=== PATIENT | male | born 1985 | race American Indian/Alaskan Native ===

== ENCOUNTER 2017-12-12 09:30 | Emergency (ER) | payer SELFPAY ==
[2017-12-12 10:05] VITALS: BP 138/84
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
[2017-12-12] MEDS ORDERED: TORADOL IM ONE (10:57)
[2017-12-12] MEDS ORDERED: FLEXERIL PO ONE (10:57)
== END 2017-12-12 11:24 | disposition home or self-care (01) ==
LOC: ED 09:30
DX: M79.651 Pain in right thigh (principal)
CPT/HCPCS: 96372; 99282; J1885

== ENCOUNTER 2017-12-12 17:41 | Emergency (ER) | payer SELFPAY ==
[2017-12-12] MEDS ORDERED: NACL 0.9% 1000 ML 1,000 ML IV ONE (18:28)
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
[2017-12-12 18:56] LABS: Basophils % (Auto) 0.3 % (0.0-1.8); Eosinophils # (Auto) 0.1 K/mm3 (0.0-0.4); Eosinophils % (Auto) 0.7 % (0.0-4.3); Hematocrit 43.9 % (35.5-45.6); Hemoglobin 14.6 gm/dl (11.8-15.2); Lymphocytes # (Auto) 1.4 K/mm3 (1.2-5.4); Lymphocytes % (Auto) 15.3 % (13.4-35.0); Mean Corpuscular HGB Conc 33 % (32-34); Mean Corpuscular Hemoglobin 32 pg (28-32); Mean Corpuscular Volume 97 fl (84-94); Monocytes # (Auto) 0.5 K/mm3 (0.0-0.8); Monocytes % (Auto) 5.8 % (0.0-7.3); Platelet Count 177 K/mm3 (140-440); Red Blood Count 4.52 M/mm3 (3.65-5.03); Red Cell Distribution Width 14.3 % (13.2-15.2)
[2017-12-12 18:58] LABS: Alanine Aminotransferase 20 units/L (7-56); Albumin 4.8 g/dL (3.9-5); BUN/Creatinine Ratio 14; Blood Urea Nitrogen 15 mg/dL (9-20); Hemolysis Index 10
--- NOTE | 2017-12-12 19:56 | Cat Scan Report ---
FINAL REPORT EXAM: CT HEAD/BRAIN WO CON HISTORY: ams TECHNIQUE: CT head without contrast PRIORS: None. FINDINGS: No acute intra-axial or extra-axial hemorrhage is identified. There is no evidence of midline shift or mass effect. The ventricles and sulci are within normal limits. Valerio-white matter differentiation is intact. No acute parenchymal abnormalities seen. Bony calvarium is grossly intact. Visualized portions of the mastoids and paranasal sinuses are unremarkable. IMPRESSION: Negative CT head
[2017-12-12 19:57] LABS: Amphetamine Screen,Urine PRESUMPTIVE NEGATIVE; Benzodiazepines Screen,Urine PRESUMPTIVE NEGATIVE; Cocaine Screen,Urine PRESUMPTIVE NEGATIVE; Methadone Screen,Urine PRESUMPTIVE NEGATIVE; Opiate Screen,Urine PRESUMPTIVE NEGATIVE
[2017-12-12 19:59] LABS: Bacteria,Urine 2+ /HPF (Negative); Bilirubin,Urine NEG (Negative); Blood,Urine LG (Negative); Color,Urine Red (Yellow); Mucus,Urine 2+ /HPF; Urobilinogen,Urine < 2.0 mg/dL (<2.0)
[2017-12-12 20:02] LABS: RBC,Urine > 182.0 /HPF (0.0-6.0)
[2017-12-12 20:10] LABS: Cannabinoid Screen,Urine PRESUMPTIVE POSITIVE
[2017-12-12 20:39] VITALS: BP 125/65
[2017-12-12] MEDS ORDERED: MOTRIN PO ONE (20:46)
[2017-12-12] MEDS ORDERED: MOTRIN ONE (20:48)
== END 2017-12-12 21:00 | disposition home or self-care (01) ==
LOC: ED 17:41
DX: R56.9 Unspecified convulsions (principal); M79.606 Pain in leg, unspecified; T39.1X5A Adverse effect of 4-Aminophenol derivatives, initial encounter; T39.315A Adverse effect of propionic acid derivatives, initial encounter; F17.200 Nicotine dependence, unspecified, uncomplicated; F12.10 Cannabis abuse, uncomplicated; Y92.89 Other specified places as the place of occurrence of the external cause
CPT/HCPCS: 36415; 70450; 80053; 80307; 81001; 82962; 85025; 93005; 93010; 96360; 99285; G0480; J7030; 80320

== ENCOUNTER 2018-02-16 18:02 | Emergency (ER) | payer SELFPAY ==
[2018-02-16 19:13] LABS: Hemoglobin 15.4 gm/dl (11.8-15.2); Mean Corpuscular HGB Conc 33 % (32-34); Mean Corpuscular Hemoglobin 32 pg (28-32); Mean Corpuscular Volume 97 fl (84-94); Platelet Count 178 K/mm3 (140-440); Red Blood Count 4.83 M/mm3 (3.65-5.03); Red Cell Distribution Width 13.8 % (13.2-15.2)
[2018-02-16] MEDS ORDERED: FIORICET PO ONE (19:13)
[2018-02-16] MEDS ORDERED: KEPPRA 1,000 MG/NS 0.75% 100ML 1,000 MG/100 ML BAG IV ONE (19:13)
[2018-02-16 19:15] LABS: BUN/Creatinine Ratio 11; Blood Urea Nitrogen 13 mg/dL (9-20); Calcium 9.4 mg/dL (8.4-10.2); Hemolysis Index 17
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
[2018-02-16 20:14] LABS: Amphetamine Screen,Urine PRESUMPTIVE NEGATIVE; Benzodiazepines Screen,Urine PRESUMPTIVE NEGATIVE; Cocaine Screen,Urine PRESUMPTIVE NEGATIVE; Methadone Screen,Urine PRESUMPTIVE NEGATIVE; Opiate Screen,Urine PRESUMPTIVE NEGATIVE
[2018-02-16 20:26] LABS: Cannabinoid Screen,Urine PRESUMPTIVE POSITIVE
--- NOTE | 2018-02-16 22:13 | Cat Scan Report ---
FINAL REPORT PROCEDURE: CT HEAD/BRAIN WO CON TECHNIQUE: Computerized tomography of the head was performed without contrast material. HISTORY: seizure, headache COMPARISON: Prior CT scan of the brain 12/12/2017 FINDINGS: Brain: Brain density appears normal. No evidence of intracranial hemorrhage. No parenchymal hemorrhage, mass lesions or mass effect are seen. No abnormal extraxial fluid collects or masses are seen. Ventricles: Ventricles are normal size and are midline. Bone Windows: No evidence of skull fracture. Postsurgical changes visualized inferior aspect right orbit. Small fixation plate and screws appear to be present. There appears to been previous craniotomy left parietal region. The bone flap is in place. Paranasal sinuses: Minimal mucosal thickening visualized anterior aspect of the right side of the sphenoid sinus. A small polyp cannot be excluded. Visualized paranasal sinuses otherwise are clear. Mastoid air cells: Clear IMPRESSION: No acute abnormality is seen. Minimal paranasal sinus disease as described. Postsurgical changes inferior aspect right orbit and left parietal bone..
[2018-02-16 23:42] VITALS: BP 135/49
== END 2018-02-16 23:06 | disposition home or self-care (01) ==
LOC: ED 18:02
DX: R56.9 Unspecified convulsions (principal); E83.41 Hypermagnesemia; F17.200 Nicotine dependence, unspecified, uncomplicated
CPT/HCPCS: 36415; 70450; 80048; 80307; 83735; 85027; 96374; 99285; J1953

== ENCOUNTER 2018-02-21 11:21 | Emergency (ER) | payer OTHER ==
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
[2018-02-21 13:01] LABS: Hematocrit 43.9 % (35.5-45.6); Hemoglobin 14.9 gm/dl (11.8-15.2); Mean Corpuscular HGB Conc 34 % (32-34); Mean Corpuscular Hemoglobin 33 pg (28-32); Mean Corpuscular Volume 96 fl (84-94); Platelet Count 180 K/mm3 (140-440); Red Blood Count 4.57 M/mm3 (3.65-5.03); Red Cell Distribution Width 13.4 % (13.2-15.2)
[2018-02-21 13:17] LABS: BUN/Creatinine Ratio 17; Blood Urea Nitrogen 15 mg/dL (9-20); Calcium 9.6 mg/dL (8.4-10.2); Hemolysis Index 83
[2018-02-21] MEDS ORDERED: KEPPRA 500 MG/NS 0.82% 100 ML 500 MG/100 ML BAG IV ONE (13:21)
[2018-02-21 14:53] VITALS: BP 123/67
== END 2018-02-21 14:43 | disposition home or self-care (01) ==
LOC: ED 11:21
DX: R56.9 Unspecified convulsions (principal); F17.200 Nicotine dependence, unspecified, uncomplicated
CPT/HCPCS: 36415; 80048; 85027; 96374; 99284; J1953

== ENCOUNTER 2018-03-22 11:03 | Emergency (ER) | payer SELFPAY ==
--- NOTE | 2018-03-22 12:23 | Emergency Department Report ---
- General Chief Complaint: Medical Clearance Stated Complaint: MEDICATION REFILL Time Seen by Provider: 03/22/18 12:10 Source: patient, family Mode of arrival: Ambulatory Limitations: No Limitations - History of Present Illness Initial Comments: 32-year-old male past medical history seizures on Keppra presents with complaint of 2 weeks of persistent cough with intermittent brown sputum. Patient states he was recently exposed to a family member who has pneumonia. Patient denies nausea vomiting rash diarrhea abdominal pain chest pain or shortness of breath. States he is having persistent cough. Patient is awake alert and oriented 3 fully lucid and nontoxic appearing. Accompanied by family member at bedside. Patient is requesting a refill on Keppra as today are his last doses available and his current prescription. MD Complaint: fever, cough Onset/Timin -: week(s) Severity: moderate Consistency: intermittent Associated Symptoms: cough Treatments Prior to Arrival: none - Related Data Home Medications Medication Instructions Recorded Confirmed Last Taken levETIRAcetam [Keppra TAB] 1,000 mg PO QAM 03/22/18 03/22/18 Unknown levETIRAcetam [Keppra] 500 mg PO QPM 03/22/18 03/22/18 Unknown Previous Rx's Medication Instructions Recorded Last Taken Type ALBUTEROL Inhaler [ProAir HFA 2 puff IH QID PRN #1 inhalation 03/22/18 Unknown Rx Inhaler] Acetaminophen [Acetaminophen TAB] 500 mg PO Q6HR PRN #20 tablet 03/22/18 Unknown Rx Azithromycin [Zithromax Z-GREG] 250 mg PO QDAY #1 pack 03/22/18 Unknown Rx levETIRAcetam [Keppra] 1,500 mg PO QDAY #90 tablet 03/22/18 Unknown Rx Allergies Allergy/AdvReac Type Severity Reaction Status Date / Time No Known Allergies Allergy Unverified 12/12/17 10:01 ED Review of Systems ROS: Stated complaint: MEDICATION REFILL Other details as noted in HPI Constitutional: denies: chills, fever Eyes: denies: eye pain, eye discharge, vision change ENT: denies: ear pain, throat pain Respiratory: denies: cough, shortness of breath, wheezing Cardiovascular: denies: chest pain, palpitations Endocrine: no symptoms reported Gastrointestinal: denies: abdominal pain, nausea, diarrhea Genitourinary: denies: urgency, dysuria Musculoskeletal: denies: back pain, joint swelling, arthralgia Skin: denies: rash, lesions Neurological: denies: headache, weakness, paresthesias Psychiatric: denies: anxiety, depression Hematological/Lymphatic: denies: easy bleeding, easy bruising ED Past Medical Hx - Past Medical History Hx Seizures: Yes Additional medical history: SEIZURE - Surgical History Additional Surgical History: plate in head / skin graft - Social History Smoking Status: Current Every Day Smoker Substance Use Type: Alcohol, Marijuana - Medications Home Medications: Home Medications Medication Instructions Recorded Confirmed Last Taken Type ALBUTEROL Inhaler [ProAir HFA 2 puff IH QID PRN #1 inhalation 03/22/18 Unknown Rx Inhaler] Acetaminophen [Acetaminophen TAB] 500 mg PO Q6HR PRN #20 tablet 03/22/18 Unknown Rx Azithromycin [Zithromax Z-GREG] 250 mg PO QDAY #1 pack 03/22/18 Unknown Rx levETIRAcetam [Keppra TAB] 1,000 mg PO QAM 03/22/18 03/22/18 Unknown History levETIRAcetam [Keppra] 1,500 mg PO QDAY #90 tablet 03/22/18 Unknown Rx levETIRAcetam [Keppra] 500 mg PO QPM 03/22/18 03/22/18 Unknown History ED Physical Exam - General Limitations: No Limitations General appearance: alert, in no apparent distress - Head Head exam: Present: atraumatic, normocephalic - Eye Eye exam: Present: normal appearance - ENT ENT exam: Present: mucous membranes moist - Neck Neck exam: Present: normal inspection - Respiratory Respiratory exam: Present: normal lung sounds bilaterally. Absent: respiratory distress - Cardiovascular Cardiovascular Exam: Present: regular rate, normal rhythm. Absent: systolic murmur, diastolic murmur, rubs, gallop - GI/Abdominal GI/Abdominal exam: Present: soft, normal bowel sounds - Rectal Rectal exam: Present: deferred - Extremities Exam Extremities exam: Present: normal inspection - Back Exam Back exam: Present: normal inspection - Neurological Exam Neurological exam: Present: alert, oriented X3 - Psychiatric Psychiatric exam: Present: normal affect, normal mood - Skin Skin exam: Present: warm, dry, intact, normal color. Absent: rash ED Course Vital Signs 06/03/18 06/03/18 11:13 12:13 Temperature 98.5 F Pulse Rate 80 Respiratory 18 18 Rate Blood Pressure 145/93 O2 Sat by Pulse 97 Oximetry ED Medical Decision Making - Medical Decision Making A/P: Right lower lobe pneumonia 1-RLL on CXR. CURB -65 Score. 0 points Low risk group: 0.6% 30-day mortality. Consider outpatient treatment. empiric course of azithromycin. Pt has a history of seizures will avoid fluoroquinolones 2-refill on Keppra 1000qday, 500qhs 3-follow up with primary care 4-vital signs stable for discharge. Patient tolerating by mouth fluid and food without any difficulty 5- I advised patient to follow up with primary care or to return to the ED for any inability to tolerate by mouth fluid or food persistent nausea and vomiting severe fevers and chills or fevers persistently above 100.4 despite antipyretic use, severe lethargy. Patient stated he understood my instructions. I advised patient to remain well-hydrated. Critical care attestation.: If time is entered above; I have spent that time in minutes in the direct care of this critically ill patient, excluding procedure time. ED Disposition Clinical Impression: Community acquired pneumonia Qualifiers: Laterality: right Lung location: lower lobe of lung Qualified Code(s): J18.1 - Lobar pneumonia, unspecified organism Disposition: TO HOME OR SELFCARE Is pt being admited?: No Does the pt Need Aspirin: No Condition: Stable Instructions: Bacterial Pneumonia (ED), Community-acquired Pneumonia (ED) Prescriptions: Acetaminophen [Acetaminophen TAB] 500 mg PO Q6HR PRN #20 tablet PRN Reason: Fever ALBUTEROL Inhaler [ProAir HFA Inhaler] 2 puff IH QID PRN #1 inhalation PRN Reason: Shortness Of Breath Azithromycin [Zithromax Z-GREG] 250 mg PO QDAY #1 pack levETIRAcetam [Keppra] 1,500 mg PO QDAY #90 tablet Referrals: [facility] [Provider Group] - 3-5 Days [facility] [Outside] - 3-5 Days Forms: Accompanied Note, Work/School Release Form(ED) Time of Disposition: 13:18
--- NOTE | 2018-03-22 12:51 | XRay Report ---
ROUTINE CHEST, TWO VIEWS: HISTORY: Cough. There is a rounded airspace opacity in the posterior segment of the right lower lobe measuring up to 6 cm. With the given history, this most likely represents a round pneumonia. Mass is thought less likely. The remainder of the lungs are clear. No pleural fluid or pneumothorax. Normal heart and mediastinal structures. Normal bony thorax. IMPRESSION: Right lower lobe pneumonia.
[2018-03-22] MEDS ORDERED: ZITHROMAX PO ONE (13:15)
[2018-03-22 13:42] VITALS: BP 136/91
== END 2018-03-22 13:33 | disposition home or self-care (01) ==
LOC: ED 11:03
DX: J18.1 Lobar pneumonia, unspecified organism (principal); F17.200 Nicotine dependence, unspecified, uncomplicated; F12.90 Cannabis use, unspecified, uncomplicated
CPT/HCPCS: 71046; 99283

== ENCOUNTER 2018-04-28 11:31 | Emergency (ER) | payer SELFPAY ==
[2018-04-28] MEDS ORDERED: BENADRYL IV ONE (12:25)
[2018-04-28] MEDS ORDERED: ZOFRAN IV ONE (12:25)
[2018-04-28] MEDS ORDERED: NACL 0.9% 1000 ML 1,000 ML IV ONE (12:26)
[2018-04-28] MEDS ORDERED: KEPPRA 1,000 MG in D5W 100 ML IV ONE (12:51)
[2018-04-28 12:52] LABS: Basophils % (Auto) 0.3 % (0.0-1.8); Eosinophils % (Auto) 0.2 % (0.0-4.3); Hematocrit 44.6 % (35.5-45.6); Lymphocytes # (Auto) 1.5 K/mm3 (1.2-5.4); Lymphocytes % (Auto) 15.1 % (13.4-35.0); Mean Corpuscular HGB Conc 34 % (32-34); Mean Corpuscular Hemoglobin 32 pg (28-32); Mean Corpuscular Volume 95 fl (84-94); Monocytes # (Auto) 0.5 K/mm3 (0.0-0.8); Platelet Count 162 K/mm3 (140-440); Red Blood Count 4.67 M/mm3 (3.65-5.03); Red Cell Distribution Width 14.6 % (13.2-15.2)
[2018-04-28] MEDS ORDERED: KEPPRA 1,000 MG/NS 0.75% 100ML 1,000 MG/100 ML BAG IV ONE (13:00)
[2018-04-28 13:02] LABS: BUN/Creatinine Ratio 14; Blood Urea Nitrogen 14 mg/dL (9-20); Calcium 9.8 mg/dL (8.4-10.2); Hemolysis Index 16
--- NOTE | 2018-04-28 14:23 | Cat Scan Report ---
FINAL REPORT EXAM: CT HEAD/BRAIN WO CON HISTORY: headache TECHNIQUE: CT of the head was performed without intravenous contrast. PRIORS: 02/16/2018. FINDINGS: The ventricles are normal in shape and position. The ventricles are nondilated. No intracranial hemorrhage, mass, mass effect, midline shift or evidence of acute ischemic infarct. The basilar cisterns are patent. Mild mucosal thickening of the maxillary and ethmoid sinuses is seen. The extracranial soft tissues demonstrate no abnormality. The calvarium is intact. The orbits are intact. The mastoid air cells are clear. IMPRESSION: 1. No acute intracranial abnormality. 2. Mucosal thickening of the ethmoid and maxillary sinuses is likely congestive or inflammatory.
[2018-04-28 15:39] VITALS: BP 142/63
--- NOTE | 2018-04-28 15:44 | Emergency Department Report ---
ED Headache HPI - General Chief Complaint: Seizure Stated Complaint: HEAD ACHE Time Seen by Provider: 04/28/18 12:20 Source: patient, family - History of Present Illness Initial Comments: Patient reports left sided headache and aura that he is about to have a seizure. Reports that he missed his night time dose of keppra. Reports that he took his morning dose. Symptoms feel like a seizure is about to happen. Denies trauma. Reports remote hx skull fracture Timing/Duration: increasing Quality: mild Head Injury Location: parietal Recent Head Trauma: no recent headache/trauma Associated Symptoms: seizures, other (Denies fam hx SAH). denies: confusion, fatigue, facial pain, fever/chills, flushing, loss of consciousness, nausea/ vomiting, nasal congestion, nasal drainage, numbness in legs/feet, rash, sinus infection, stiff neck, vision changes, weakness Allergies/Adverse Reactions: Allergies No Known Allergies Allergy (Unverified 12/12/17 10:01) Home Medications: Ambulatory Orders ALBUTEROL Inhaler [ProAir HFA Inhaler] 2 puff IH QID PRN #1 inhalation 03/22/18 levETIRAcetam [Keppra TAB] 1,000 mg PO QAM 03/22/18 levETIRAcetam [Keppra] 500 mg PO QPM 03/22/18 ED Review of Systems ROS: Stated complaint: HEAD ACHE Other details as noted in HPI Other: GENERAL: No weight change, fatigue, weakness, fever, chills, or night sweats SKIN: No changes in skin or hair, no itching, no rashes, no jaundice HEAD: No trauma, or visual changes EYES: No blurriness, tearing, itching, acute visual loss, conjunctival discoloration, or scleral icterus EARS: No hearing loss, tinnitus, vertigo, or earache NOSE: No rhinorrhea, stuffiness, sneezing, itching, or epistaxis MOUTH: No bleeding gums, hoarseness, sore throat, or swelling CARDIAC: No new murmur, chest pain, palpitations, dyspnea on exertion, orthopnea , PND, or edema RESPIRATORY: No shortness of breath, wheeze, cough, sputum production, hemoptysis, pneumonia, asthma, bronchitis, or emphysema GI: No change in appetite, nausea, vomiting, dysphagia, change in bowel frequency, diarrhea, constipation, bleeding, hematemesis, melena, hematochezia, or abdominal pain URINARY: No frequency, urgency, polyuria, dysuria, hematuria, or incontinence MUSCULOSKELETAL: No muscle weakness, joint stiffness, decrease in range of motion, redness, swelling NEUROLOGIC: Reports headache and aura of a seizure HEMATOLOGIC: No anemia, easy bruising, bleeding, petechiae, or purpura ENDOCRINE: No hot or cold intolerance, sweating, polyuria, polydipsia or, polyphagia no thyroid problems PSYCHIATRIC: No change in mood, no anxiety, no depression ED Past Medical Hx - Past Medical History Previous Medical History?: Yes Hx Seizures: Yes Additional medical history: SEIZURE - Surgical History Past Surgical History?: Yes Additional Surgical History: plate in head / skin graft - Social History Smoking Status: Current Every Day Smoker Substance Use Type: None - Medications Home Medications: Home Medications Medication Instructions Recorded Confirmed Last Taken Type ALBUTEROL Inhaler [ProAir HFA 2 puff IH QID PRN #1 inhalation 03/22/18 04/28/18 Unknown Rx Inhaler] levETIRAcetam [Keppra TAB] 1,000 mg PO QAM 03/22/18 04/28/18 04/28/18 History levETIRAcetam [Keppra] 500 mg PO QPM 03/22/18 04/28/18 Unknown History ED Physical Exam - General Limitations: No Limitations - Other Other exam information: GENERAL: Patient in no acute distress HEAD: Normocephalic, atraumatic EYES: PERRLA, EOM intact, no scleral icterus, visual begum and acuity wnl NOSE: No tenderness, discharge, sinus tenderness MOUTH: No erythema, bleeding, exudate HEART: Regular rate and rhythm, no murmur, S1-S2 are auscultated, pulses are symmetric LUNGS: bilateral breath sounds. No wheezing, rales, rhonchi ABDOMEN: Normal bowel sounds, no tenderness, no rebound, no guarding, no masses , no CVA tenderness MUSCULOSKELETAL: Normal joint range of motion, no redness, no swelling, no tenderness NEUROLOGIC: GCS 15, Alert and Oriented x3, Cranial nerves intact, normal sensation, normal strength, normal gait, no cerebellar deficit SKIN: Skin is warm and dry, no wounds, no rashes ED Course Vital Signs 04/28/18 04/28/18 04/28/18 11:42 11:46 12:01 Temperature 98.4 F Pulse Rate 68 70 64 Respiratory 18 12 16 Rate Blood Pressure 141/84 O2 Sat by Pulse 100 Oximetry 04/28/18 04/28/18 04/28/18 12:15 12:30 12:45 Temperature Pulse Rate 71 64 58 L Respiratory 14 14 19 Rate Blood Pressure 117/83 126/72 122/73 O2 Sat by Pulse Oximetry 04/28/18 04/28/18 04/28/18 13:00 13:38 13:45 Temperature Pulse Rate 66 65 68 Respiratory 18 27 H 9 L Rate Blood Pressure 118/67 118/67 124/79 O2 Sat by Pulse Oximetry 04/28/18 04/28/18 04/28/18 14:01 14:15 14:30 Temperature Pulse Rate 59 L 68 71 Respiratory 13 19 12 Rate Blood Pressure 127/62 128/75 135/70 O2 Sat by Pulse Oximetry 04/28/18 04/28/18 04/28/18 14:45 15:00 15:15 Temperature Pulse Rate 62 85 Respiratory 11 L 12 Rate Blood Pressure 137/74 132/71 O2 Sat by Pulse Oximetry 04/28/18 04/28/18 15:31 15:40 Temperature Pulse Rate 68 Respiratory 16 Rate Blood Pressure 142/63 O2 Sat by Pulse 98 Oximetry ED Medical Decision Making - Lab Data Result diagrams: 04/28/18 12:32 04/28/18 12:32 - Medical Decision Making Patient comfortable. Updated with results. Plan discharge with outpatient follow up. Patient agrees with plan and will return if symptoms worsen. Critical care attestation.: If time is entered above; I have spent that time in minutes in the direct care of this critically ill patient, excluding procedure time. ED Disposition Clinical Impression: Seizure Headache Qualifiers: Headache type: unspecified Headache chronicity pattern: acute headache Intractability: not intractable Qualified Code(s): R51 - Headache Disposition: DC-01 TO HOME OR SELFCARE Is pt being admited?: No Condition: Stable Instructions: Epilepsy (ED), Acute Headache (ED) Referrals: PRIMARY CARE, [Primary Care Provider] - 2-3 Days WALLY ROWAN MD [Staff Physician] - 2-3 Days Time of Disposition: 15:46
== END 2018-04-28 15:58 | disposition home or self-care (01) ==
LOC: ED 11:31
DX: R56.9 Unspecified convulsions (principal); R51 Headache; F17.200 Nicotine dependence, unspecified, uncomplicated
CPT/HCPCS: 36415; 70450; 80048; 85025; 96374; 96375; 99284; J1200; J1953; J2405; J2930; J7030

== ENCOUNTER 2018-05-24 17:33 | Emergency (ER) | payer SELFPAY ==
[2018-05-24 17:38] VITALS: BP 171/100
[2018-05-24] MEDS ORDERED: KEPPRA PO ONE ×2 (19:27→19:34)
--- NOTE | 2018-05-24 20:41 | Emergency Department Report ---
Chief Complaint: Medical Clearance Stated Complaint: MED REFILL Time Seen by Provider: 05/24/18 20:41 - HPI History of Present Illness: 32-year-old -[place] male states he comes to the emergency room for his Keppra refill. Patient reports that he took his last dose yesterday. Patient comes in needing a refill on his Keppra. Patient denies any distress has no complaints at this time. The patient was last seen here last month 04/28/2018 he was referred to [facility] and [facility] for primary follow-up. - ROS Review of Systems: Currently no complaints. - Exam Vital Signs: Vital Signs 05/24/18 17:34 Temperature 98.4 F Pulse Rate 59 L Respiratory 16 Rate Blood Pressure 171/100 O2 Sat by Pulse 100 Oximetry MSE screening note: Focused history and physical exam performed. Due to findings the following was ordered: Patient's here for non-medical emergency. I discussed the patient that he will need to go to [facility] or [facility] to obtain his refills on his Keppra. I instructed patient that proper follow-up with lab work is required to continue with ordering Keppra and this is the emergency room he would be better managed at a primary care provider's office. Patient proceeded to leave without allow me to do a physical exam. ED Disposition for MSE Condition: Stable Referrals: PRIMARY CARE [Primary Care Provider] - 3-5 Days
== END 2018-05-24 20:42 | disposition left against medical advice (07) ==
LOC: ED 17:33
DX: Z76.0 Encounter for issue of repeat prescription (principal); F17.200 Nicotine dependence, unspecified, uncomplicated; Z53.21 Procedure and treatment not carried out due to patient leaving prior to being seen by health care provider